=== PATIENT | female | born 1990 | race Caucasian/White ===

== ENCOUNTER 2020-01-28 10:13 | Inpatient (IN) | payer SELFPAY ==
[2020-01-28] MEDS ORDERED: Sodium Chloride 0.9% 1,000 ML IV ONE ×2 (10:38→14:37)
--- NOTE | 2020-01-28 11:00 | EDM.PDOC ---
ED HPI GENERAL MEDICAL PROBLEM - General Chief Complaint: General Stated Complaint: PERSISTEN HEADACHE VOMITING BODYPAINS Time Seen by Provider: 01/28/20 10:15 Source of Information: Reports: Patient History Limitations: Reports: No Limitations - History of Present Illness INITIAL COMMENTS - FREE TEXT/NARRATIVE: HISTORY AND PHYSICAL: History of present illness: Patient is a 29-year-old female who presents to the ED today with concern of headache and generalized body aches over the past 3 to 4 days and urinary frequency/urgency. Patient does state that this is the worst headache of her life and is ultimately what brought her into the ED. Patient states she has tried ibuprofen and Tylenol at home for headache but has not taken any of this today. Patient states she has also had some nausea with a few episodes of vomiting but has not vomited today but feels like she is unable to eat without vomiting. Patient denies any abdominal pain but state she has had left sided flank pain. Patient states that she does have urinary frequency and feels like when she does go to the bathroom often but little volume of urine comes out even though she feels like she has to go. Patient states that at times the headache has made her feel dizzy. Patient denies fever, chills, chest pain, shortness of breath, or cough. Denies neck stiff ness, change in vision, syncope, or near syncope. Denies abdominal pain, diarrhea, constipation, or dysuria. Has not noted any blood in urine or stool. Review of systems: As per history of present illness and below otherwise all systems reviewed and negative. Past medical history: As per history of present illness and as reviewed below otherwise noncontributory. Surgical history: As per history of present illness and as reviewed below otherwise noncontributory. Social history: See social history for further information Family history: As per history of present illness and as reviewed below otherwise noncontributory. Physical exam: General: Patient is alert, oriented, and in no acute distress. Patient sitting comfortably on exam table. HEENT: Atraumatic, normocephalic, pupils equal and reactive bilaterally, negative for conjunctival pallor or scleral icterus, mucous membranes moist, TMs normal bilaterally, throat clear, neck supple, nontender, trachea midline. No drooling or trismus noted. No meningeal signs. No hot potato voice noted. Lungs: Patient speaking clearly without breathlessness, no wheezing or stridor, no accessory muscle use or respiratory distress. Auscultation deferred due to current COV-ID 19 outbreak. Heart: Auscultation deferred due to current COVID-19 outbreak. Abdomen: Soft, nondistended, nontender. Negative for masses or hepatosplenomegaly. Positive for costovertebral tenderness of the left. Pelvis: Stable nontender. Genitourinary: Deferred. Rectal: Deferred. Skin: Intact, warm, dry. No lesions or rashes noted. Extremities: Atraumatic, negative for cords or calf pain. Neurovascular unremarkable. Neuro: Awake, alert, oriented. Cranial nerves II through XII unremarkable. Cerebellum unremarkable. Motor and sensory unremarkable throughout. Exam nonfocal. Notes: Dr. Garcia consulted on patient and will admit to observation. Diagnostics: CBC, CMP, UA w cult, Uhcg, Trop, EKG, COVID19, CXR, Head CT, blood culture x 2, lactate Therapeutics: NS, Rocephin, Toradol, Zofran, Benadryl, Reglan Impression: Pyelonephritis Headache Plan: Admit to observation to Dr. Garcia. Definitive disposition and diagnosis as appropriate pending reevaluation and review of above. headache Pain Score (Numeric/FACES): 9 - Related Data Allergies Allergy/AdvReac Type Severity Reaction Status Date / Time No Known Allergies Allergy Verified 01/28/20 10:39 Past Medical History - Past Surgical History GI Surgical History: Reports: Cholecystectomy Social & Family History - Tobacco Use Smoking Status *Q: Never Smoker - Recreational Drug Use Recreational Drug Use: No ED ROS GENERAL - Review of Systems Review Of Systems: Comprehensive ROS is negative, except as noted in HPI. ED EXAM, GENERAL - Physical Exam Exam: See Below (see dictation) Course - Vital Signs Last Recorded V/S: Last Vital Signs Temp 99.5 F 01/28/20 10:33 Pulse 85 01/28/20 10:33 Resp 18 01/28/20 10:33 BP 130/73 01/28/20 10:33 Pulse Ox 100 01/28/20 10:33 - Orders/Labs/Meds Orders: Active Orders 24 hr Category Date Time Status Admission Status [Patient Status] [ADT] Stat ADT 01/28/20 13:31 Ordered EKG Documentation Completion [RC] STAT Care 01/28/20 10:33 Active CULTURE BLOOD [BC] Stat Lab 01/28/20 12:38 Ordered CULTURE BLOOD [BC] Stat Lab 01/28/20 12:38 Ordered CULTURE URINE [RM] Stat Lab 01/28/20 10:52 Received LACTATE WITH REFLEX [BG] Stat Lab 01/28/20 13:31 Ordered Blood Culture x2 Reflex Set [OM.PC] Stat Oth 01/28/20 12:38 Ordered Labs: Laboratory Tests 01/28/20 01/28/20 01/28/20 Range/Units 10:50 10:50 10:52 WBC 13.85 H (4.0-11.0) K/uL RBC 4.82 (4.30-5.90) M/uL Hgb 14.0 (12.0-16.0) g/dL Hct 39.1 (36.0-46.0) % MCV 81.1 (80.0-98.0) fL MCH 29.0 (27.0-32.0) pg MCHC 35.8 (31.0-37.0) g/dL RDW Std Deviation 39.7 (28.0-62.0) fl RDW Coeff of Karrie 14 (11.0-15.0) % Plt Count 167 (150-400) K/uL MPV 11.60 (7.40-12.00) fL Neut % (Auto) 82.1 H (48.0-80.0) % Lymph % (Auto) 7.6 L (16.0-40.0) % Henry % (Auto) 9.8 (0.0-15.0) % Eos % (Auto) 0.4 (0.0-7.0) % Baso % (Auto) 0.1 (0.0-1.5) % Neut # (Auto) 11.4 H (1.4-5.7) K/uL Lymph # (Auto) 1.1 (0.6-2.4) K/uL Henry # (Auto) 1.4 H (0.0-0.8) K/uL Eos # (Auto) 0.1 (0.0-0.7) K/uL Baso # (Auto) 0.0 (0.0-0.1) K/uL Sodium 133 L (136-145) mmol/L Potassium 3.5 (3.5-5.1) mmol/L Chloride 95 L (98-107) mmol/L Carbon Dioxide 26.2 (21.0-32.0) mmol/L BUN 23 H (7.0-18.0) mg/dL Creatinine 1.2 H (0.6-1.0) mg/dL Est Cr Clr Drug Dosing 69.97 mL/min Estimated GFR (MDRD) 53.5 ml/min Glucose 99 (74-106) mg/dL Calcium 8.7 (8.5-10.1) mg/dL Total Bilirubin 1.2 H (0.2-1.0) mg/dL AST 55 H (15-37) IU/L ALT 91 H (14-63) IU/L Alkaline Phosphatase 105 (46-116) U/L Troponin I < 0.050 (0.000-0.056) ng/mL Total Protein 8.3 H (6.4-8.2) g/dL Albumin 3.3 L (3.4-5.0) g/dL Globulin 5.0 H (2.6-4.0) g/dL Albumin/Globulin Ratio 0.7 L (0.9-1.6) Urine Color DARK YELLOW Urine Appearance SLT CLOUDY Urine pH 6.0 (5.0-8.0) Ur Specific Rodeo 1.015 (1.001-1.035) Urine Protein 100 H (NEGATIVE) mg/dL Urine Glucose (UA) NEGATIVE (NEGATIVE) mg/dL Urine Ketones 15 H (NEGATIVE) mg/dL Urine Occult Blood TRACE-INTACT H (NEGATIVE) Urine Nitrite NEGATIVE (NEGATIVE) Urine Bilirubin NEGATIVE (NEGATIVE) Urine Urobilinogen 1.0 (<2.0) EU/dL Ur Leukocyte Esterase MODERATE H (NEGATIVE) Urine RBC 0-3 (0-2/HPF) Urine WBC 5-10 (0-5/HPF) Ur Epithelial Cells FEW (NONE-FEW) Urine Bacteria 2+ H (NEGATIVE) Urine HCG, Qual (NEGATIVE) COVID-19 (KAREN) (NEGATIVE) 01/28/20 01/28/20 Range/Units 10:52 11:34 WBC (4.0-11.0) K/uL RBC (4.30-5.90) M/uL Hgb (12.0-16.0) g/dL Hct (36.0-46.0) % MCV (80.0-98.0) fL MCH (27.0-32.0) pg MCHC (31.0-37.0) g/dL RDW Std Deviation (28.0-62.0) fl RDW Coeff of Karrie (11.0-15.0) % Plt Count (150-400) K/uL MPV (7.40-12.00) fL Neut % (Auto) (48.0-80.0) % Lymph % (Auto) (16.0-40.0) % Henry % (Auto) (0.0-15.0) % Eos % (Auto) (0.0-7.0) % Baso % (Auto) (0.0-1.5) % Neut # (Auto) (1.4-5.7) K/uL Lymph # (Auto) (0.6-2.4) K/uL Henry # (Auto) (0.0-0.8) K/uL Eos # (Auto) (0.0-0.7) K/uL Baso # (Auto) (0.0-0.1) K/uL Sodium (136-145) mmol/L Potassium (3.5-5.1) mmol/L Chloride (98-107) mmol/L Carbon Dioxide (21.0-32.0) mmol/L BUN (7.0-18.0) mg/dL Creatinine (0.6-1.0) mg/dL Est Cr Clr Drug Dosing mL/min Estimated GFR (MDRD) ml/min Glucose (74-106) mg/dL Calcium (8.5-10.1) mg/dL Total Bilirubin (0.2-1.0) mg/dL AST (15-37) IU/L ALT (14-63) IU/L Alkaline Phosphatase (46-116) U/L Troponin I (0.000-0.056) ng/mL Total Protein (6.4-8.2) g/dL Albumin (3.4-5.0) g/dL Globulin (2.6-4.0) g/dL Albumin/Globulin Ratio (0.9-1.6) Urine Color Urine Appearance Urine pH (5.0-8.0) Ur Specific Rodeo (1.001-1.035) Urine Protein (NEGATIVE) mg/dL Urine Glucose (UA) (NEGATIVE) mg/dL Urine Ketones (NEGATIVE) mg/dL Urine Occult Blood (NEGATIVE) Urine Nitrite (NEGATIVE) Urine Bilirubin (NEGATIVE) Urine Urobilinogen (<2.0) EU/dL Ur Leukocyte Esterase (NEGATIVE) Urine RBC (0-2/HPF) Urine WBC (0-5/HPF) Ur Epithelial Cells (NONE-FEW) Urine Bacteria (NEGATIVE) Urine HCG, Qual NEGATIVE (NEGATIVE) COVID-19 (KAREN) NEGATIVE (NEGATIVE) Meds: Medications Discontinued Medications Generic Name Dose Route Start Last Admin Trade Name Freq PRN Reason Stop Dose Admin Diphenhydramine HCl 25 mg 01/28/20 12:53 01/28/20 13:18 Benadryl IVPUSH 01/28/20 12:54 25 mg ONETIME ONE Administration Sodium Chloride 1,000 mls @ 999 mls/hr 01/28/20 10:38 01/28/20 11:09 Normal Saline IV 01/28/20 11:38 999 mls/hr STAT ONE Administration Ceftriaxone Sodium/Dextrose 1 50 mls @ 100 mls/hr 01/28/20 12:05 01/28/20 13:16 gm/ Premix IV 01/28/20 12:34 100 mls/hr ONETIME ONE Administration Ketorolac Tromethamine 30 mg 01/28/20 12:53 01/28/20 13:17 Toradol IVPUSH 01/28/20 12:54 30 mg ONETIME ONE Administration Metoclopramide HCl 10 mg 01/28/20 12:53 01/28/20 13:18 Reglan IV 01/28/20 12:54 10 mg ONETIME ONE Administration Ondansetron HCl 4 mg 01/28/20 12:08 01/28/20 13:18 Zofran IVPUSH 01/28/20 12:09 4 mg ONETIME ONE Administration Phenazopyridine HCl 200 mg 01/28/20 12:08 01/28/20 13:19 Pyridium PO 01/28/20 12:09 200 mg ONETIME ONE Administration Departure - Departure Time of Disposition: 13:35 Disposition: Refer to Observation Clinical Impression: Pyelonephritis Headache Qualifiers: Headache type: unspecified Headache chronicity pattern: acute headache Intractability: not intractable Qualified Code(s): R51 - Headache - Discharge Information Referrals: PCP,None [Primary Care Provider] - Forms: ED Department Discharge Additional Instructions: Sepsis Event Note (ED) - Evaluation Sepsis Screening Result: No Definite Risk - Focused Exam Vital Signs: Vital Signs Temp Pulse Resp BP Pulse Ox 01/28/20 10:33 99.5 F 85 18 130/73 100 - My Orders Last 24 Hours: My Active Orders 01/28/20 10:33 EKG Documentation Completion [RC] STAT 01/28/20 10:52 CULTURE URINE [RM] Stat 01/28/20 12:38 CULTURE BLOOD [BC] Stat CULTURE BLOOD [BC] Stat Blood Culture x2 Reflex Set [OM.PC] Stat 01/28/20 13:31 Admission Status [Patient Status] [ADT] Stat LACTATE WITH REFLEX [BG] Stat - Assessment/Plan Last 24 Hours: My Active Orders 01/28/20 10:33 EKG Documentation Completion [RC] STAT 01/28/20 10:52 CULTURE URINE [RM] Stat 01/28/20 12:38 CULTURE BLOOD [BC] Stat CULTURE BLOOD [BC] Stat Blood Culture x2 Reflex Set [OM.PC] Stat 01/28/20 13:31 Admission Status [Patient Status] [ADT] Stat LACTATE WITH REFLEX [BG] Stat
[2020-01-28 11:31] LABS: BLOOD UREA NITROGEN,BUN 23 mg/dL (7.0-18.0); CARBON DIOXIDE,CO2 26.2 mmol/L (21.0-32.0); CHLORIDE,CL 95 mmol/L (98-107); GLUCOSE RANDOM 99 mg/dL (74-106); POTASSIUM,K 3.5 mmol/L (3.5-5.1); SODIUM,NA 133 mmol/L (136-145)
[2020-01-28] MEDS ORDERED: cefTRIAXone 1 GM in Premix Bag 1 BAG IV ONE (12:05)
[2020-01-28] MEDS ORDERED: Phenazopyridine 200 MG Tab PO ONE (12:08)
[2020-01-28] MEDS ORDERED: Ondansetron 4 MG/2 ML SDV IVPUSH ONE (12:08)
--- NOTE | 2020-01-28 12:31 | CT ---
Head CT Technique: Multiple axial sections through the brain were obtained. Intravenous contrast was not utilized. Comparison: No previous intracranial imaging. Findings: Ventricles along with basal cisterns and sulci over the convexities are within normal limits for the patient's age. No abnormal parenchymal densities are seen. No evidence of intracranial hemorrhage. No midline shift or mass effect is seen. Visualized mastoid sinuses and paranasal sinuses show nothing acute. No acute calvarial finding is appreciated. Impression: 1. Nothing acute is identified on noncontrast head CT exam. Diagnostic code #1 This report was dictated in MDT
--- NOTE | 2020-01-28 12:39 | CR ---
Chest: Frontal view of the chest was obtained. Comparison: No prior chest imaging. Heart size and mediastinum are normal. Nodule is noted within the left upper chest measuring about 1.2 cm. This appears fairly dense and most likely is calcified although noncontrast chest CT could be considered to confirm. Lungs otherwise are clear. Bony structures are unremarkable. Impression: 1. Nodule within the left upper chest as described above. 2. Nothing acute is otherwise seen. Diagnostic code #9 This report was dictated in MDT
[2020-01-28] MEDS ORDERED: diphenhydrAMINE 50 MG/ML SDV IVPUSH ONE (12:53)
[2020-01-28] MEDS ORDERED: Metoclopramide 10 MG/2 ML SDV IV ONE (12:53)
[2020-01-28] MEDS ORDERED: Ketorolac 30 MG/ML SDV IVPUSH ONE (12:53)
[2020-01-28] MEDS ORDERED: Sodium Chloride 0.9% 2.5 ML Syringe FLUSH PRN (14:12)
[2020-01-28] MEDS ORDERED: Ondansetron 4 MG/2 ML SDV IVPUSH PRN (14:12)
[2020-01-28] MEDS ORDERED: Docusate Sodium 100 MG Cap PO PRN (14:12)
[2020-01-28] MEDS: Morphine 2 MG/ML SYRINGE IVPUSH PRN ×2 (14:50→17:49)
--- NOTE | 2020-01-28 14:51 | PCM.HP.2 ---
H&P History of Present Illness - General Date of Service: 01/28/20 Admit Problem/Dx: Admission Diagnosis/Problem Admission Diagnosis/Problem Pyelonephritis Source of Information: Patient History Limitations: Reports: No Limitations - History of Present Illness Initial Comments - Free Text/Narative: This 29 year old female with pmh of UTIs, none for 5 years, presented to the ED with complaints of flank pain, dysuria, nausea and generalized malaise. She reports on Saturday she started to notice the urinary symptoms and was very fatigued, she slept from 8 am to 8 pm. She reports the flank pain to her L worsened progressively and Tylenol and Ibuprofen has not really helped at home. She denies fevers or chills. She denies history of renal stones. No recent antibiotic use. She also reports a headache, that is all over her head, with light and sound sensitivity. She generally feels ill and is very thirsty, but nauseated. She denies diarrhea or constipation. No chest pain or palpitations. No shortness of breath. No focal neurological deficits. She does not use tobacco, alcohol or recreational drug use. In the ED labwork revelaed leukocytosis, 13,850 lactic acid 0.8. Na 133, Cl 95, BUN 23, Cr 1.2 Bili 1.2 AST 55 ALT 91, troponin negative. head CT negative. CXR negative, reveals calcified granuloma. COVID negative. UA revealed positive nitrite, trace blood, moderate leukcyte esterase, pyruis, +2 bacteria, HCG negative. She was treated with Rocephin, IVFs and migraine cocktail of Toradol, Benadryl, and Reglan. She did not feel comfortable going some as she is unsure she is able to take oral medications. She will be admitted observation for pyelonephritis. headache Pain Score (Numeric/FACES): 9 - Related Data Allergies/Adverse Reactions: Allergies Allergy/AdvReac Type Severity Reaction Status Date / Time No Known Allergies Allergy Verified 01/28/20 14:23 Past Medical History Cardiovascular History: Reports: None. Denies: CAD, Hypertension Respiratory History: Reports: None. Denies: Asthma Gastrointestinal History: Reports: None. Denies: GI Bleed Genitourinary History: Reports: UTI, Recurrent (hasn't had in 5 years, but used to get then frequently). Denies: Acute Renal Failure Musculoskeletal History: Reports: None Neurological History: Reports: None. Denies: Migraines Psychiatric History: Reports: None Oncologic (Cancer) History: Reports: None - Infectious Disease History Infectious Disease History: Reports: None - Past Surgical History GI Surgical History: Reports: Cholecystectomy Social & Family History - Family History Cardiac: Reports: CAD, Hypertension, [place] - Tobacco Use Smoking Status *Q: Never Smoker - Alcohol Use Alcohol Use History: No - Recreational Drug Use Recreational Drug Use: No H&P Review of Systems - Review of Systems: Review Of Systems: See Below General: Reports: Malaise, Fatigue. Denies: Fever HEENT: Reports: No Symptoms. Denies: Headaches, Sinus Congestion, Sore Throat Pulmonary: Reports: No Symptoms. Denies: Shortness of Breath Cardiovascular: Reports: No Symptoms. Denies: Chest Pain Gastrointestinal: Reports: Abdominal Pain, Decreased Appetite, Nausea. Denies: Black Stool, Bloody Stool Genitourinary: Reports: Dysuria, Frequency, Urgency, Flank Pain Musculoskeletal: Reports: No Symptoms Skin: Reports: No Symptoms Psychiatric: Reports: No Symptoms Neurological: Reports: No Symptoms Hematologic/Lymphatic: Reports: No Symptoms Immunologic: Reports: No Symptoms Exam - Exam Exam: See Below - Vital Signs Vital Signs: Last Vital Signs Temp 99.5 F 01/28/20 10:33 Pulse 102 H 01/28/20 12:42 Resp 18 01/28/20 11:42 BP 107/70 01/28/20 12:42 Pulse Ox 99 01/28/20 12:42 Weight: 63.503 kg - Exam General: Alert, Oriented, Mild Distress (having flank pain, restless sitting on edge of bed) HEENT: Conjunctiva Clear, Posterior Pharynx Clear. No: Mucosa Moist & [place] (dry) Lungs: Clear to Auscultation, Normal Respiratory Effort Cardiovascular: Regular Rate, Regular Rhythm, Normal S1, Normal S2. No: Tachyca rdia, Systolic Murmur GI/Abdominal Exam: Normal Bowel Sounds, Soft, Non-Tender Back Exam: Full Range of Motion, CVA Tenderness (L). No: CVA Tenderness (R) Extremities: Normal Inspection, Normal Range of Motion, Non-Tender, No Pedal Edema Neuro Extensive - Mental Status: Alert, Oriented x3 Neuro Extensive - Motor, Sensory, Reflexes: CN II-XII Intact Psychiatric: Alert, Normal Affect, Normal Mood - Patient Data Lab Results Last 24 hrs: Laboratory Results - last 24 hr 01/28/20 01/28/20 01/28/20 Range/Units 10:50 10:50 10:52 WBC 13.85 H (4.0-11.0) K/uL RBC 4.82 (4.30-5.90) M/uL Hgb 14.0 (12.0-16.0) g/dL Hct 39.1 (36.0-46.0) % MCV 81.1 (80.0-98.0) fL MCH 29.0 (27.0-32.0) pg MCHC 35.8 (31.0-37.0) g/dL RDW Std Deviation 39.7 (28.0-62.0) fl RDW Coeff of Karrie 14 (11.0-15.0) % Plt Count 167 (150-400) K/uL MPV 11.60 (7.40-12.00) fL Neut % (Auto) 82.1 H (48.0-80.0) % Lymph % (Auto) 7.6 L (16.0-40.0) % [place] % (Auto) 9.8 (0.0-15.0) % Eos % (Auto) 0.4 (0.0-7.0) % Baso % (Auto) 0.1 (0.0-1.5) % Neut # (Auto) 11.4 H (1.4-5.7) K/uL Lymph # (Auto) 1.1 (0.6-2.4) K/uL [place] # (Auto) 1.4 H (0.0-0.8) K/uL Eos # (Auto) 0.1 (0.0-0.7) K/uL Baso # (Auto) 0.0 (0.0-0.1) K/uL Lactate (0.20-2.00) mmol/L Sodium 133 L (136-145) mmol/L Potassium 3.5 (3.5-5.1) mmol/L Chloride 95 L (98-107) mmol/L Carbon Dioxide 26.2 (21.0-32.0) mmol/L BUN 23 H (7.0-18.0) mg/dL Creatinine 1.2 H (0.6-1.0) mg/dL Est Cr Clr Drug Dosing 69.97 mL/min Estimated GFR (MDRD) 53.5 ml/min Glucose 99 (74-106) mg/dL Calcium 8.7 (8.5-10.1) mg/dL Total Bilirubin 1.2 H (0.2-1.0) mg/dL AST 55 H (15-37) IU/L ALT 91 H (14-63) IU/L Alkaline Phosphatase 105 (46-116) U/L Troponin I < 0.050 (0.000-0.056) ng/mL Total Protein 8.3 H (6.4-8.2) g/dL Albumin 3.3 L (3.4-5.0) g/dL Globulin 5.0 H (2.6-4.0) g/dL Albumin/Globulin Ratio 0.7 L (0.9-1.6) Urine Color DARK YELLOW Urine Appearance SLT CLOUDY Urine pH 6.0 (5.0-8.0) Ur Specific [place] 1.015 (1.001-1.035) Urine Protein 100 H (NEGATIVE) mg/dL Urine Glucose (UA) NEGATIVE (NEGATIVE) mg/dL Urine Ketones 15 H (NEGATIVE) mg/dL Urine Occult Blood TRACE-INTACT H (NEGATIVE) Urine Nitrite NEGATIVE (NEGATIVE) Urine Bilirubin NEGATIVE (NEGATIVE) Urine Urobilinogen 1.0 (<2.0) EU/dL Ur Leukocyte Esterase MODERATE H (NEGATIVE) Urine RBC 0-3 (0-2/HPF) Urine WBC 5-10 (0-5/HPF) Ur Epithelial Cells FEW (NONE-FEW) Urine Bacteria 2+ H (NEGATIVE) Urine HCG, Qual (NEGATIVE) COVID-19 (KAREN) (NEGATIVE) 01/28/20 01/28/20 01/28/20 Range/Units 10:52 11:34 13:45 WBC (4.0-11.0) K/uL RBC (4.30-5.90) M/uL Hgb (12.0-16.0) g/dL Hct (36.0-46.0) % MCV (80.0-98.0) fL MCH (27.0-32.0) pg MCHC (31.0-37.0) g/dL RDW Std Deviation (28.0-62.0) fl RDW Coeff of [place] (11.0-15.0) % Plt Count (150-400) K/uL MPV (7.40-12.00) fL Neut % (Auto) (48.0-80.0) % Lymph % (Auto) (16.0-40.0) % [place] % (Auto) (0.0-15.0) % Eos % (Auto) (0.0-7.0) % Baso % (Auto) (0.0-1.5) % Neut # (Auto) (1.4-5.7) K/uL Lymph # (Auto) (0.6-2.4) K/uL [place] # (Auto) (0.0-0.8) K/uL Eos # (Auto) (0.0-0.7) K/uL Baso # (Auto) (0.0-0.1) K/uL Lactate 0.8 (0.20-2.00) mmol/L Sodium (136-145) mmol/L Potassium (3.5-5.1) mmol/L Chloride (98-107) mmol/L Carbon Dioxide (21.0-32.0) mmol/L BUN (7.0-18.0) mg/dL Creatinine (0.6-1.0) mg/dL Est Cr Clr Drug Dosing mL/min Estimated GFR (MDRD) ml/min Glucose (74-106) mg/dL Calcium (8.5-10.1) mg/dL Total Bilirubin (0.2-1.0) mg/dL AST (15-37) IU/L ALT (14-63) IU/L Alkaline Phosphatase (46-116) U/L Troponin I (0.000-0.056) ng/mL Total Protein (6.4-8.2) g/dL Albumin (3.4-5.0) g/dL Globulin (2.6-4.0) g/dL Albumin/Globulin Ratio (0.9-1.6) Urine Color Urine Appearance Urine pH (5.0-8.0) Ur Specific [place] (1.001-1.035) Urine Protein (NEGATIVE) mg/dL Urine Glucose (UA) (NEGATIVE) mg/dL Urine Ketones (NEGATIVE) mg/dL Urine Occult Blood (NEGATIVE) Urine Nitrite (NEGATIVE) Urine Bilirubin (NEGATIVE) Urine Urobilinogen (<2.0) EU/dL Ur Leukocyte Esterase (NEGATIVE) Urine RBC (0-2/HPF) Urine WBC (0-5/HPF) Ur Epithelial Cells (NONE-FEW) Urine Bacteria (NEGATIVE) Urine HCG, Qual NEGATIVE (NEGATIVE) COVID-19 (KAREN) NEGATIVE (NEGATIVE) Result Diagrams: 01/28/20 10:50 01/28/20 10:50 Sepsis Event Note - Evaluation Sepsis Screening Result: No Definite Risk - Focused Exam Vital Signs: Vital Signs Temp Pulse Resp BP Pulse Ox 01/28/20 12:42 102 H 107/70 99 01/28/20 11:42 100 18 114/70 100 01/28/20 11:13 93 18 128/82 96 01/28/20 10:33 99.5 F 85 18 130/73 100 - Problem List (1) Pyelonephritis SNOMED Code(s): 15169793 ICD Code: N12 - TUBULO-INTERSTITIAL NEPHRITIS, NOT SPCF ACUTE OR CHRONIC Status: Acute Current Visit: Yes (2) Headache SNOMED Code(s): 61517017 ICD Code: R51 - HEADACHE Status: Acute Current Visit: Yes Qualifiers: Headache type: unspecified Headache chronicity pattern: acute headache Intractability: not intractable Qualified Code(s): R51 - Headache Problem List Initiated/Reviewed/Updated: Yes Orders Last 24hrs: Active Orders 24 hr Category Date Time Status Admission Status [Patient Status] [ADT] Stat ADT 01/28/20 13:31 Active Antiembolic Devices [RC] PER UNIT ROUTINE Care 01/28/20 14:11 Active EKG Documentation Completion [RC] STAT Care 01/28/20 10:33 Active Intake and Output [RC] QSHIFT Care 01/28/20 14:11 Active May Shower [RC] ASDIRECTED Care 01/28/20 14:11 Active Oxygen Therapy [RC] PRN Care 01/28/20 14:11 Active Up With Assistance [RC] ASDIRECTED Care 01/28/20 14:11 Active VTE/DVT Education [RC] PER UNIT ROUTINE Care 01/28/20 14:11 Active Vital Signs [RC] Q4H Care 01/28/20 14:11 Active Clear Liquid Diet [DIET] Diet 01/28/20 Lunch Active Retroperitoneal Comp [US] Urgent Exams 01/28/20 14:03 Ordered CBC WITH AUTO DIFF [HEME] AM Lab 01/29/20 05:11 Ordered CBC WITH AUTO DIFF [HEME] AM Lab 01/30/20 05:11 Ordered COMPREHENSIVE METABOLIC PN,CMP [CHEM] AM Lab 01/29/20 05:11 Ordered COMPREHENSIVE METABOLIC PN,CMP [CHEM] AM Lab 01/30/20 05:11 Ordered CULTURE BLOOD [BC] Stat Lab 01/28/20 12:52 Received CULTURE BLOOD [BC] Stat Lab 01/28/20 13:12 Received CULTURE URINE [RM] Stat Lab 01/28/20 10:52 Received Acetaminophen [Tylenol] Med 01/28/20 14:11 Active 650 mg PO Q4H PRN Docusate Sodium [Colace] Med 01/28/20 14:12 Active 100 mg PO BID PRN Morphine Med 01/28/20 14:11 Active 2 mg IVPUSH Q2H PRN Ondansetron [Zofran] Med 01/28/20 14:12 Active 4 mg IVPUSH Q4H PRN SUMAtriptan [Imitrex] Med 01/28/20 14:37 Ordered 50 mg PO Q2H PRN Sodium Chloride 0.9% [Normal Saline] 1,000 ml Med 01/28/20 14:37 Ordered IV .Bolus Sodium Chloride 0.9% [Normal Saline] 1,000 ml Med 01/28/20 14:15 Active IV Q8H Sodium Chloride 0.9% [Saline Flush] Med 01/28/20 14:12 Active 2.5 ml FLUSH ASDIRECTED PRN cefTRIAXone [Rocephin in Dextrose,Iso-Osm 1 GM/50 ML] 1 Med 01/29/20 12:00 Active gm Premix Bag 1 bag IV Q24H oxyCODONE Med 01/28/20 14:11 Active 5 mg PO Q4H PRN Blood Culture x2 Reflex Set [OM.PC] Stat Oth 01/28/20 12:38 Ordered Saline Lock Insert [OM.PC] Routine Oth 01/28/20 14:12 Ordered Sequential Compression Device [OM.PC] Per Unit Routine Oth 01/28/20 14:11 Ordered Resuscitation Status Routine Resus Stat 01/28/20 14:11 Ordered Medication Orders Acetaminophen (Tylenol) 650 mg PO Q4H PRN PRN Reason: Pain (Mild 1-3)/fever Docusate Sodium (Colace) 100 mg PO BID PRN PRN Reason: Constipation Sodium Chloride (Normal Saline) 1,000 mls @ 125 mls/hr IV Q8H [place] Ceftriaxone Sodium/Dextrose 1 (gm/ Premix) 50 mls @ 100 mls/hr IV Q24H [place] Sodium Chloride (Normal Saline) 1,000 mls @ 999 mls/hr IV .Bolus ONE Stop: 01/28/20 15:37 Morphine Sulfate (Morphine) 2 mg IVPUSH Q2H PRN PRN Reason: Pain (severe 7-10) Ondansetron HCl (Zofran) 4 mg IVPUSH Q4H PRN PRN Reason: Nausea Oxycodone HCl (Oxycodone) 5 mg PO Q4H PRN PRN Reason: Pain (moderate 4-6) Sodium Chloride (Saline Flush) 2.5 ml FLUSH ASDIRECTED PRN PRN Reason: Keep Vein Open Sumatriptan Succinate (Imitrex) 50 mg PO Q2H PRN PRN Reason: Headache Assessment/Plan Comment:: This 29 year old female admitted with acute pyelonephritis 1. Acute pyelonephritis - UC and BC pending - Continue Rocephin 1 gm IV daily - Give 1 L NS bolus now, then continue NS 125 ml/hr - Morphine PRN pain as well as Oxycodone - CL diet due to nausea, advance as tolerated. - Obtain renal US to rule out obstruction 2. Migraine: - No history of migraines - Migraine cocktail in ED did not work - Imitrex po x 2 doses ordered, will monitor VTE prophylaxis: SCDs and ambulation Dispo: 1-2 days - Mortality Measure Prognosis:: Good
[2020-01-28] MEDS: Sodium Chloride 0.9% 1,000 ML IV SCH ×2 (16:11→22:37)
[2020-01-28] MEDS: SUMAtriptan 50 MG Tab PO PRN ×2 (16:13→19:26)
--- NOTE | 2020-01-28 16:23 | US ---
Renal ultrasound: Multiple real-time images of the kidneys were obtained. Kidneys show no hydronephrosis or mass. Cortical thickness is preserved. No ureteral jets were seen within the bladder despite five-minute interval. This raises the possibility of dehydration. Small 4 mL post void bladder volume is noted. Right kidney length: 12.4 cm Left kidney length: 13.2 cm Impression: 1. No ureteral jets were seen despite five-minute interval. This raises possibility of dehydration. 2. Small post void residual as noted above. 3. Renal ultrasound is otherwise unremarkable. Diagnostic code #2 Study was dictated in MDT
[2020-01-28] MEDS: oxyCODONE 5 MG Tab PO PRN (22:36)
[2020-01-28] MEDS: Acetaminophen 325 MG Tab PO PRN (23:10)
[2020-01-29] MEDS: oxyCODONE 5 MG Tab PO PRN ×4 (04:59→22:11)
[2020-01-29 06:20] LABS: BLOOD UREA NITROGEN,BUN 7 mg/dL (7.0-18.0); CARBON DIOXIDE,CO2 21.4 mmol/L (21.0-32.0); CHLORIDE,CL 101 mmol/L (98-107); GLUCOSE RANDOM 120 mg/dL (74-106); POTASSIUM,K 3.1 mmol/L (3.5-5.1); SODIUM,NA 133 mmol/L (136-145)
[2020-01-29] MEDS ORDERED: Ibuprofen 400 MG Tab PO PRN (08:30)
--- NOTE | 2020-01-29 08:40 | PCM.PN ---
- General Info Date of Service: 01/29/20 Admission Dx/Problem (Free Text): Admission Diagnosis/Problem Admission Diagnosis/Problem Pyelonephritis Subjective Update: Feeling general malaise this morning, having headache and continued L flank pain. No chest pain or SOB. No palpitations. Fevers overnight. Functional Status: Reports: Pain Controlled, Tolerating Diet, Ambulating, Urinating - Review of Systems General: Reports: Fatigue, Malaise HEENT: Reports: Headaches. Denies: Sore Throat, Visual Changes Pulmonary: Reports: No Symptoms. Denies: Shortness of Breath Cardiovascular: Reports: No Symptoms. Denies: Chest Pain Gastrointestinal: Reports: Nausea. Denies: Diarrhea Genitourinary: Reports: Dysuria, Flank Pain Musculoskeletal: Reports: No Symptoms Skin: Reports: No Symptoms Neurological: Reports: No Symptoms Psychiatric: Reports: No Symptoms - Patient Data Vitals - Most Recent: Last Vital Signs Temp 100.5 F 01/29/20 04:45 Pulse 98 01/29/20 04:45 Resp 16 01/29/20 04:45 BP 104/59 L 01/29/20 04:45 Pulse Ox 99 01/29/20 04:45 Weight - Most Recent: 63.503 kg I&O - Last 24 Hours: Intake & Output 01/28/20 01/29/20 01/29/20 22:59 06:59 14:59 Intake Total 240 3685 Output Total 400 2450 Balance -160 1235 Lab Results Last 24 Hours: Laboratory Results - last 24 hr 01/28/20 01/28/20 01/28/20 Range/Units 10:50 10:50 10:52 WBC 13.85 H (4.0-11.0) K/uL RBC 4.82 (4.30-5.90) M/uL Hgb 14.0 (12.0-16.0) g/dL Hct 39.1 (36.0-46.0) % MCV 81.1 (80.0-98.0) fL MCH 29.0 (27.0-32.0) pg MCHC 35.8 (31.0-37.0) g/dL RDW Std Deviation 39.7 (28.0-62.0) fl RDW Coeff of Karrie 14 (11.0-15.0) % Plt Count 167 (150-400) K/uL MPV 11.60 (7.40-12.00) fL Neut % (Auto) 82.1 H (48.0-80.0) % Lymph % (Auto) 7.6 L (16.0-40.0) % [place] % (Auto) 9.8 (0.0-15.0) % Eos % (Auto) 0.4 (0.0-7.0) % Baso % (Auto) 0.1 (0.0-1.5) % Neut # (Auto) 11.4 H (1.4-5.7) K/uL Lymph # (Auto) 1.1 (0.6-2.4) K/uL [place] # (Auto) 1.4 H (0.0-0.8) K/uL Eos # (Auto) 0.1 (0.0-0.7) K/uL Baso # (Auto) 0.0 (0.0-0.1) K/uL Nucleated RBC % /100WBC Nucleated RBCs # K/uL Lactate (0.20-2.00) mmol/L Sodium 133 L (136-145) mmol/L Potassium 3.5 (3.5-5.1) mmol/L Chloride 95 L (98-107) mmol/L Carbon Dioxide 26.2 (21.0-32.0) mmol/L BUN 23 H (7.0-18.0) mg/dL Creatinine 1.2 H (0.6-1.0) mg/dL Est Cr Clr Drug Dosing 69.97 mL/min Estimated GFR (MDRD) 53.5 ml/min Glucose 99 (74-106) mg/dL Calcium 8.7 (8.5-10.1) mg/dL Total Bilirubin 1.2 H (0.2-1.0) mg/dL AST 55 H (15-37) IU/L ALT 91 H (14-63) IU/L Alkaline Phosphatase 105 (46-116) U/L Troponin I < 0.050 (0.000-0.056) ng/mL Total Protein 8.3 H (6.4-8.2) g/dL Albumin 3.3 L (3.4-5.0) g/dL Globulin 5.0 H (2.6-4.0) g/dL Albumin/Globulin Ratio 0.7 L (0.9-1.6) Urine Color DARK YELLOW Urine Appearance SLT CLOUDY Urine pH 6.0 (5.0-8.0) Ur Specific [place] 1.015 (1.001-1.035) Urine Protein 100 H (NEGATIVE) mg/dL Urine Glucose (UA) NEGATIVE (NEGATIVE) mg/dL Urine Ketones 15 H (NEGATIVE) mg/dL Urine Occult Blood TRACE-INTACT H (NEGATIVE) Urine Nitrite NEGATIVE (NEGATIVE) Urine Bilirubin NEGATIVE (NEGATIVE) Urine Urobilinogen 1.0 (<2.0) EU/dL Ur Leukocyte Esterase MODERATE H (NEGATIVE) Urine RBC 0-3 (0-2/HPF) Urine WBC 5-10 (0-5/HPF) Ur Epithelial Cells FEW (NONE-FEW) Urine Bacteria 2+ H (NEGATIVE) Urine HCG, Qual (NEGATIVE) COVID-19 (KAREN) (NEGATIVE) 01/28/20 01/28/20 01/28/20 Range/Units 10:52 11:34 13:45 WBC (4.0-11.0) K/uL RBC (4.30-5.90) M/uL Hgb (12.0-16.0) g/dL Hct (36.0-46.0) % MCV (80.0-98.0) fL MCH (27.0-32.0) pg MCHC (31.0-37.0) g/dL RDW Std Deviation (28.0-62.0) fl RDW Coeff of [place] (11.0-15.0) % Plt Count (150-400) K/uL MPV (7.40-12.00) fL Neut % (Auto) (48.0-80.0) % Lymph % (Auto) (16.0-40.0) % [place] % (Auto) (0.0-15.0) % Eos % (Auto) (0.0-7.0) % Baso % (Auto) (0.0-1.5) % Neut # (Auto) (1.4-5.7) K/uL Lymph # (Auto) (0.6-2.4) K/uL [place] # (Auto) (0.0-0.8) K/uL Eos # (Auto) (0.0-0.7) K/uL Baso # (Auto) (0.0-0.1) K/uL Nucleated RBC % /100WBC Nucleated RBCs # K/uL Lactate 0.8 (0.20-2.00) mmol/L Sodium (136-145) mmol/L Potassium (3.5-5.1) mmol/L Chloride (98-107) mmol/L Carbon Dioxide (21.0-32.0) mmol/L BUN (7.0-18.0) mg/dL Creatinine (0.6-1.0) mg/dL Est Cr Clr Drug Dosing mL/min Estimated GFR (MDRD) ml/min Glucose (74-106) mg/dL Calcium (8.5-10.1) mg/dL Total Bilirubin (0.2-1.0) mg/dL AST (15-37) IU/L ALT (14-63) IU/L Alkaline Phosphatase (46-116) U/L Troponin I (0.000-0.056) ng/mL Total Protein (6.4-8.2) g/dL Albumin (3.4-5.0) g/dL Globulin (2.6-4.0) g/dL Albumin/Globulin Ratio (0.9-1.6) Urine Color Urine Appearance Urine pH (5.0-8.0) Ur Specific [place] (1.001-1.035) Urine Protein (NEGATIVE) mg/dL Urine Glucose (UA) (NEGATIVE) mg/dL Urine Ketones (NEGATIVE) mg/dL Urine Occult Blood (NEGATIVE) Urine Nitrite (NEGATIVE) Urine Bilirubin (NEGATIVE) Urine Urobilinogen (<2.0) EU/dL Ur Leukocyte Esterase (NEGATIVE) Urine RBC (0-2/HPF) Urine WBC (0-5/HPF) Ur Epithelial Cells (NONE-FEW) Urine Bacteria (NEGATIVE) Urine HCG, Qual NEGATIVE (NEGATIVE) COVID-19 (KAREN) NEGATIVE (NEGATIVE) 01/29/20 01/29/20 Range/Units 05:33 05:33 WBC 9.53 (4.0-11.0) K/uL RBC 3.78 L (4.30-5.90) M/uL Hgb 10.8 L (12.0-16.0) g/dL Hct 31.3 L (36.0-46.0) % MCV 82.8 (80.0-98.0) fL MCH 28.6 (27.0-32.0) pg MCHC 34.5 (31.0-37.0) g/dL RDW Std Deviation 42.0 (28.0-62.0) fl RDW Coeff of Karrie 14 (11.0-15.0) % Plt Count 175 (150-400) K/uL MPV 10.80 (7.40-12.00) fL Neut % (Auto) 71.4 (48.0-80.0) % Lymph % (Auto) 14.1 L (16.0-40.0) % [place] % (Auto) 14.3 (0.0-15.0) % Eos % (Auto) 0.1 (0.0-7.0) % Baso % (Auto) 0.1 (0.0-1.5) % Neut # (Auto) 6.8 H (1.4-5.7) K/uL Lymph # (Auto) 1.3 (0.6-2.4) K/uL [place] # (Auto) 1.4 H (0.0-0.8) K/uL Eos # (Auto) 0.0 (0.0-0.7) K/uL Baso # (Auto) 0.0 (0.0-0.1) K/uL Nucleated RBC % 0.0 /100WBC Nucleated RBCs # 0 K/uL Lactate (0.20-2.00) mmol/L Sodium 133 L (136-145) mmol/L Potassium 3.1 L (3.5-5.1) mmol/L Chloride 101 (98-107) mmol/L Carbon Dioxide 21.4 (21.0-32.0) mmol/L BUN 7 (7.0-18.0) mg/dL Creatinine 0.9 (0.6-1.0) mg/dL Est Cr Clr Drug Dosing 93.29 mL/min Estimated GFR (MDRD) > 60.0 ml/min Glucose 120 H (74-106) mg/dL Calcium 7.1 L (8.5-10.1) mg/dL Total Bilirubin 0.9 (0.2-1.0) mg/dL AST 51 H (15-37) IU/L ALT 78 H (14-63) IU/L Alkaline Phosphatase 100 (46-116) U/L Troponin I (0.000-0.056) ng/mL Total Protein 6.2 L (6.4-8.2) g/dL Albumin 2.4 L (3.4-5.0) g/dL Globulin 3.8 (2.6-4.0) g/dL Albumin/Globulin Ratio 0.6 L (0.9-1.6) Urine Color Urine Appearance Urine pH (5.0-8.0) Ur Specific [place] (1.001-1.035) Urine Protein (NEGATIVE) mg/dL Urine Glucose (UA) (NEGATIVE) mg/dL Urine Ketones (NEGATIVE) mg/dL Urine Occult Blood (NEGATIVE) Urine Nitrite (NEGATIVE) Urine Bilirubin (NEGATIVE) Urine Urobilinogen (<2.0) EU/dL Ur Leukocyte Esterase (NEGATIVE) Urine RBC (0-2/HPF) Urine WBC (0-5/HPF) Ur Epithelial Cells (NONE-FEW) Urine Bacteria (NEGATIVE) Urine HCG, Qual (NEGATIVE) COVID-19 (KAREN) (NEGATIVE) Med Orders - Current: Current Medications Acetaminophen (Tylenol) 650 mg PO Q4H PRN PRN Reason: Pain (Mild 1-3)/fever Last Admin: 01/28/20 23:10 Dose: 650 mg Documented by: Docusate Sodium (Colace) 100 mg PO BID PRN PRN Reason: Constipation Sodium Chloride (Normal Saline) 1,000 mls @ 125 mls/hr IV Q8H [facility] Last Admin: 01/28/20 22:37 Dose: 125 mls/hr Documented by: Ceftriaxone Sodium/Dextrose 1 (gm/ Premix) 50 mls @ 100 mls/hr IV Q24H [facility] Ibuprofen (Motrin) 400 mg PO Q6H PRN PRN Reason: Pain/Fever Morphine Sulfate (Morphine) 2 mg IVPUSH Q2H PRN PRN Reason: Pain (severe 7-10) Last Admin: 01/28/20 17:49 Dose: 2 mg Documented by: Ondansetron HCl (Zofran) 4 mg IVPUSH Q4H PRN PRN Reason: Nausea Oxycodone HCl (Oxycodone) 5 mg PO Q4H PRN PRN Reason: Pain (moderate 4-6) Last Admin: 01/29/20 04:59 Dose: 5 mg Documented by: Sodium Chloride (Saline Flush) 2.5 ml FLUSH ASDIRECTED PRN PRN Reason: Keep Vein Open Discontinued Medications Diphenhydramine HCl (Benadryl) 25 mg IVPUSH ONETIME ONE Stop: 01/28/20 12:54 Last Admin: 01/28/20 13:18 Dose: 25 mg Documented by: Sodium Chloride (Normal Saline) 1,000 mls @ 999 mls/hr IV STAT ONE Stop: 01/28/20 11:38 Last Admin: 01/28/20 11:09 Dose: 999 mls/hr Documented by: Ceftriaxone Sodium/Dextrose 1 (gm/ Premix) 50 mls @ 100 mls/hr IV ONETIME ONE Stop: 01/28/20 12:34 Last Admin: 01/28/20 13:16 Dose: 100 mls/hr Documented by: Sodium Chloride (Normal Saline) 1,000 mls @ 999 mls/hr IV .Bolus ONE Stop: 01/28/20 15:37 Last Admin: 01/28/20 14:44 Dose: 999 mls/hr Documented by: Ketorolac Tromethamine (Toradol) 30 mg IVPUSH ONETIME ONE Stop: 01/28/20 12:54 Last Admin: 01/28/20 13:17 Dose: 30 mg Documented by: Metoclopramide HCl (Reglan) 10 mg IV ONETIME ONE Stop: 01/28/20 12:54 Last Admin: 01/28/20 13:18 Dose: 10 mg Documented by: Ondansetron HCl (Zofran) 4 mg IVPUSH ONETIME ONE Stop: 01/28/20 12:09 Last Admin: 01/28/20 13:18 Dose: 4 mg Documented by: Phenazopyridine HCl (Pyridium) 200 mg PO ONETIME ONE Stop: 01/28/20 12:09 Last Admin: 01/28/20 13:19 Dose: 200 mg Documented by: Sumatriptan Succinate (Imitrex) 50 mg PO Q2H PRN PRN Reason: Headache Last Admin: 01/28/20 19:26 Dose: 50 mg Documented by: - Exam General: Alert, Oriented, Cooperative, No Acute Distress Lungs: Clear to Auscultation, Normal Respiratory Effort Cardiovascular: Regular Rate, Regular Rhythm GI/Abdominal Exam: Normal Bowel Sounds, Soft Back Exam: Normal Inspection, Full Range of Motion, CVA Tenderness (L). No: CVA Tenderness (R) Extremities: Normal Inspection, Normal Range of Motion, Non-Tender, No Pedal Edema Neurological: No New Focal Deficit Psy/Mental Status: Alert, Normal Affect, Normal Mood Sepsis Event Note - Evaluation Sepsis Screening Result: Sepsis Risk - Focused Exam Vital Signs: Vital Signs Temp Temp Pulse Resp BP Pulse Ox 01/29/20 04:45 100.5 F 98 16 104/59 L 99 01/28/20 23:10 101.2 F H 01/28/20 23:04 101.2 F H 104 H 16 103/53 L 98 - Problem List & Annotations (1) Pyelonephritis SNOMED Code(s): 64779838 Code(s): N12 - TUBULO-INTERSTITIAL NEPHRITIS, NOT SPCF ACUTE OR CHRONIC Status: Acute Current Visit: Yes (2) Headache SNOMED Code(s): 83949678 Code(s): R51 - HEADACHE Status: Acute Current Visit: Yes Qualifiers: Headache type: unspecified Headache chronicity pattern: acute headache Intractability: not intractable Qualified Code(s): R51 - Headache - Problem List Review Problem List Initiated/Reviewed/Updated: Yes - My Orders Last 24 Hours: My Active Orders 01/28/20 Lunch Clear Liquid Diet [DIET] 01/28/20 14:11 Antiembolic Devices [RC] PER UNIT ROUTINE Intake and Output [RC] Q12H May Shower [RC] ASDIRECTED Oxygen Therapy [RC] PRN Up With Assistance [RC] ASDIRECTED VTE/DVT Education [RC] PER UNIT ROUTINE Vital Signs [RC] Q4H Acetaminophen [Tylenol] 650 mg PO Q4H PRN Morphine 2 mg IVPUSH Q2H PRN oxyCODONE 5 mg PO Q4H PRN Sequential Compression Device [OM.PC] Per Unit Routine Resuscitation Status Routine 01/28/20 14:12 Docusate Sodium [Colace] 100 mg PO BID PRN Ondansetron [Zofran] 4 mg IVPUSH Q4H PRN Sodium Chloride 0.9% [Saline Flush] 2.5 ml FLUSH ASDIRECTED PRN Saline Lock Insert [OM.PC] Routine 01/28/20 14:15 Sodium Chloride 0.9% [Normal Saline] 1,000 ml IV Q8H 01/28/20 Dinner Advance Diet Instructions [DIET] 01/29/20 08:30 Ibuprofen [Motrin] 400 mg PO Q6H PRN 01/29/20 12:00 cefTRIAXone [Rocephin in Dextrose,Iso-Osm 1 GM/50 ML] 1 gm Premix Bag 1 bag IV Q24H 01/30/20 05:11 CBC WITH AUTO DIFF [HEME] AM COMPREHENSIVE METABOLIC PN,CMP [CHEM] AM - Plan Plan:: This 29 year old female admitted with acute pyelonephritis 1. Acute pyelonephritis - UC and BC pending - Continue Rocephin 1 gm IV daily - Give 1 L NS bolus now, then continue NS 125 ml/hr - Morphine PRN pain as well as Oxycodone - CL diet due to nausea, advance as tolerated. - Renal US negative - JOVITA resolved with IVFs 2. Hypokalemia; - Replace with 40 meq IV - Check mag and replace as needed 3. Migraine: - Continues, hydrate. - Add Motrin VTE prophylaxis: SCDs and ambulation Dispo: 1-2 days
[2020-01-29] MEDS ORDERED: Sodium Chloride 0.9% 1,000 ML IV ONE (09:07)
[2020-01-29] MEDS: Acetaminophen 325 MG Tab PO PRN ×2 (09:30→17:20)
[2020-01-29] MEDS ORDERED: Sodium Chloride 0.9% with KCl 1,000 ML IV SCH (09:45)
[2020-01-29] MEDS: cefTRIAXone 1 GM in Premix Bag 1 BAG IV SCH (12:49)
[2020-01-29] MEDS: Morphine 2 MG/ML SYRINGE IVPUSH PRN ×2 (14:50→20:49)
[2020-01-29] MEDS: Sodium Chloride 0.9% 1,000 ML IV SCH ×3 (17:10→22:11)
[2020-01-30] MEDS: oxyCODONE 5 MG Tab PO PRN (02:13)
[2020-01-30] MEDS: Sodium Chloride 0.9% 1,000 ML IV SCH ×3 (06:12→18:11)
[2020-01-30 06:42] LABS: BLOOD UREA NITROGEN,BUN 4 mg/dL (7.0-18.0); CARBON DIOXIDE,CO2 23.6 mmol/L (21.0-32.0); CHLORIDE,CL 102 mmol/L (98-107); GLUCOSE RANDOM 97 mg/dL (74-106); POTASSIUM,K 3.1 mmol/L (3.5-5.1); SODIUM,NA 137 mmol/L (136-145)
[2020-01-30] MEDS ORDERED: Magnesium Sulfate/Water 2 GM in Premix Bag 1 BAG IV ONE (07:22)
[2020-01-30] MEDS: Acetaminophen 325 MG Tab PO PRN (08:40)
[2020-01-30] MEDS: Morphine 2 MG/ML SYRINGE IVPUSH PRN (08:41)
[2020-01-30] MEDS ORDERED: Potassium Chloride 20 MEQ Tab.ER PO ONE (09:00)
--- NOTE | 2020-01-30 09:07 | PCM.PN ---
<Maulik Patel M - Last Filed: 01/30/20 12:26> - General Info Date of Service: 01/30/20 Subjective Update: Fever yesterday evening. Continues to complain of fatigue and left flank pain but improving. Denies any nausea or vomiting. Has not had much of an appetite. - Patient Data Vitals - Most Recent: Last Vital Signs Temp 37.6 C 01/30/20 08:00 Pulse 84 01/30/20 08:00 Resp 16 01/30/20 08:00 BP 112/75 01/30/20 08:00 Pulse Ox 94 L 01/30/20 08:00 Weight - Most Recent: 63.503 kg I&O - Last 24 Hours: Intake & Output 01/29/20 01/30/20 01/30/20 22:59 06:59 14:59 Intake Total 3311 2708 Output Total 3500 2100 Balance -189 608 Lab Results Last 24 Hours: Laboratory Results - last 24 hr 01/29/20 01/30/20 01/30/20 Range/Units 05:33 05:17 05:17 WBC 7.87 (4.0-11.0) K/uL RBC 3.79 L (4.30-5.90) M/uL Hgb 11.0 L (12.0-16.0) g/dL Hct 31.8 L (36.0-46.0) % MCV 83.9 (80.0-98.0) fL MCH 29.0 (27.0-32.0) pg MCHC 34.6 (31.0-37.0) g/dL RDW Std Deviation 40.3 (28.0-62.0) fl RDW Coeff of [place] 14 (11.0-15.0) % Plt Count 215 (150-400) K/uL MPV 10.70 (7.40-12.00) fL Add Manual Diff YES Neutrophils % (Manual) 72 (48.0-80.0) % Lymphocytes % (Manual) 15 L (16.0-40.0) % Monocytes % (Manual) 10 (0.0-15.0) % Eosinophils % (Manual) 1 (0.0-7.0) % Basophils % (Manual) 2 H (0.0-1.5) % Absolute Seg Neuts 5.7 (1.4-5.7) Lymphocytes # (Manual) 1.2 (0.6-2.4) Monocytes # (Manual) 0.8 (0.0-0.8) Eosinophils # (Manual) 0.1 (0.0-0.7) Basophils # (Manual) 0.2 H (0.0-0.1) Sodium 137 (136-145) mmol/L Potassium 3.1 L (3.5-5.1) mmol/L Chloride 102 (98-107) mmol/L Carbon Dioxide 23.6 (21.0-32.0) mmol/L BUN 4 L (7.0-18.0) mg/dL Creatinine 0.9 (0.6-1.0) mg/dL Est Cr Clr Drug Dosing 93.29 mL/min Estimated GFR (MDRD) > 60.0 ml/min Glucose 97 (74-106) mg/dL Calcium 7.6 L (8.5-10.1) mg/dL Magnesium 1.8 1.7 L (1.8-2.4) mg/dL Total Bilirubin 0.9 (0.2-1.0) mg/dL AST 55 H (15-37) IU/L ALT 95 H (14-63) IU/L Alkaline Phosphatase 116 (46-116) U/L Total Protein 6.6 (6.4-8.2) g/dL Albumin 2.5 L (3.4-5.0) g/dL Globulin 4.1 H (2.6-4.0) g/dL Albumin/Globulin Ratio 0.6 L (0.9-1.6) Emanuel Results Last 24 Hours: Microbiology 01/28/20 10:52 Urine Culture - Final Urine, Voided Escherichia Coli 01/28/20 13:12 Aerobic Blood Culture - Preliminary Blood - Venous - Lab Draw NO GROWTH AFTER 1 DAY Anaerobic Blood Culture - Preliminary NO GROWTH AFTER 1 DAY 01/28/20 12:52 Aerobic Blood Culture - Preliminary Blood - Venous NO GROWTH AFTER 1 DAY Anaerobic Blood Culture - Preliminary NO GROWTH AFTER 1 DAY Med Orders - Current: Current Medications Acetaminophen (Tylenol) 650 mg PO Q4H PRN PRN Reason: Pain (Mild 1-3)/fever Last Admin: 01/30/20 08:40 Dose: 650 mg Documented by: Docusate Sodium (Colace) 100 mg PO BID PRN PRN Reason: Constipation Sodium Chloride (Normal Saline) 1,000 mls @ 125 mls/hr IV Q8H [facility] Last Admin: 01/30/20 06:12 Dose: Not Given Documented by: Ceftriaxone Sodium/Dextrose 1 (gm/ Premix) 50 mls @ 100 mls/hr IV Q24H [facility] Last Admin: 01/29/20 12:49 Dose: 100 mls/hr Documented by: Ibuprofen (Motrin) 400 mg PO Q6H PRN PRN Reason: Pain/Fever Morphine Sulfate (Morphine) 2 mg IVPUSH Q2H PRN PRN Reason: Pain (severe 7-10) Last Admin: 01/30/20 08:41 Dose: 2 mg Documented by: Ondansetron HCl (Zofran) 4 mg IVPUSH Q4H PRN PRN Reason: Nausea Oxycodone HCl (Oxycodone) 5 mg PO Q4H PRN PRN Reason: Pain (moderate 4-6) Last Admin: 01/30/20 02:13 Dose: 5 mg Documented by: Sodium Chloride (Saline Flush) 2.5 ml FLUSH ASDIRECTED PRN PRN Reason: Keep Vein Open Discontinued Medications Diphenhydramine HCl (Benadryl) 25 mg IVPUSH ONETIME ONE Stop: 01/28/20 12:54 Last Admin: 01/28/20 13:18 Dose: 25 mg Documented by: Sodium Chloride (Normal Saline) 1,000 mls @ 999 mls/hr IV STAT ONE Stop: 01/28/20 11:38 Last Admin: 01/28/20 11:09 Dose: 999 mls/hr Documented by: Ceftriaxone Sodium/Dextrose 1 (gm/ Premix) 50 mls @ 100 mls/hr IV ONETIME ONE Stop: 01/28/20 12:34 Last Admin: 01/28/20 13:16 Dose: 100 mls/hr Documented by: Sodium Chloride (Normal Saline) 1,000 mls @ 999 mls/hr IV .Bolus ONE Stop: 01/28/20 15:37 Last Admin: 01/28/20 14:44 Dose: 999 mls/hr Documented by: Sodium Chloride (Normal Saline) 1,000 mls @ 999 mls/hr IV .Bolus ONE Stop: 01/29/20 10:07 Last Admin: 01/29/20 09:29 Dose: 999 mls/hr Documented by: Potassium Chloride/Sodium Chloride (Normal Saline With 40 Meq Kcl) 1,000 mls @ 150 mls/hr IV Q6H [facility] Stop: 01/29/20 15:44 Last Admin: 01/29/20 10:25 Dose: 150 mls/hr Documented by: Magnesium Sulfate 2 gm/ Premix 50 mls @ 50 mls/hr IV ONETIME ONE Stop: 01/30/20 08:21 Last Admin: 01/30/20 08:38 Dose: 50 mls/hr Documented by: Ketorolac Tromethamine (Toradol) 30 mg IVPUSH ONETIME ONE Stop: 01/28/20 12:54 Last Admin: 01/28/20 13:17 Dose: 30 mg Documented by: Metoclopramide HCl (Reglan) 10 mg IV ONETIME ONE Stop: 01/28/20 12:54 Last Admin: 01/28/20 13:18 Dose: 10 mg Documented by: Ondansetron HCl (Zofran) 4 mg IVPUSH ONETIME ONE Stop: 01/28/20 12:09 Last Admin: 01/28/20 13:18 Dose: 4 mg Documented by: Phenazopyridine HCl (Pyridium) 200 mg PO ONETIME ONE Stop: 01/28/20 12:09 Last Admin: 01/28/20 13:19 Dose: 200 mg Documented by: Potassium Chloride (Klor-Con M20) 40 meq PO ONETIME ONE Stop: 01/30/20 09:01 Last Admin: 01/30/20 08:39 Dose: 40 meq Documented by: Sumatriptan Succinate (Imitrex) 50 mg PO Q2H PRN PRN Reason: Headache Last Admin: 01/28/20 19:26 Dose: 50 mg Documented by: - Exam General: Alert, Oriented, Cooperative, No Acute Distress Lungs: Clear to Auscultation, Normal Respiratory Effort Cardiovascular: Regular Rate, Regular Rhythm GI/Abdominal Exam: Normal Bowel Sounds, Soft, No Distention, Other (Left flank ttp) Extremities: Normal Inspection, No Pedal Edema Sepsis Event Note - Evaluation Sepsis Screening Result: No Definite Risk - Focused Exam Vital Signs: Vital Signs Temp Pulse Resp BP Pulse Ox 01/30/20 08:00 37.6 C 84 16 112/75 94 L 01/30/20 03:30 37.1 C 93 16 115/68 95 01/29/20 23:37 37.7 C 94 16 106/67 95 - Problem List Review Problem List Initiated/Reviewed/Updated: Yes - Plan Plan:: Assessment and Plan: 1. Acute pyelonephritis: - Continue IV ceftriaxone and IV NS 125 cc/hr. Advance to soft diet. Will start IV PPI qd. Repeat blood cultures ordered secondary to fever. Urine culture grew chu-sensitive E. Coli. Will start IV Toradol prn pain. - Renal US unremarkable. 2. Hypokalemia: - Will replete with IV KCl 40 mEq and recheck with AM labs. 3. Hypomagnesemia: - Will replete with IV mag sulfate 2g and recheck with AM labs. 4. DVT prophylaxis: SCD's. <Zonia Jeong - Last Filed: 01/31/20 11:25> - General Info Subjective Update: I have seen and evaluated the patient and agree with the residents note unless specified in my note - Patient Data Vitals - Most Recent: Last Vital Signs Temp 36.8 C 01/30/20 16:51 Pulse 77 01/30/20 16:51 Resp 16 01/30/20 16:51 BP 110/78 01/30/20 16:51 Pulse Ox 100 01/30/20 16:51 I&O - Last 24 Hours: Intake & Output 01/30/20 01/31/20 01/31/20 22:59 06:59 14:59 Intake Total 3513 Output Total 3300 Balance 213 Lab Results Last 24 Hours: Laboratory Results - last 24 hr 01/30/20 Range/Units 11:50 Urine Color YELLOW Urine Appearance CLEAR Urine pH 7.0 (5.0-8.0) Ur Specific [place] 1.010 (1.001-1.035) Urine Protein NEGATIVE (NEGATIVE) mg/dL Urine Glucose (UA) NEGATIVE (NEGATIVE) mg/dL Urine Ketones NEGATIVE (NEGATIVE) mg/dL Urine Occult Blood LARGE H (NEGATIVE) Urine Nitrite NEGATIVE (NEGATIVE) Urine Bilirubin NEGATIVE (NEGATIVE) Urine Urobilinogen 1.0 (<2.0) EU/dL Ur Leukocyte Esterase TRACE H (NEGATIVE) Urine RBC 0-2 (0-2/HPF) Urine WBC 0-2 (0-5/HPF) Ur Epithelial Cells FEW (NONE-FEW) Urine Bacteria FEW (NEGATIVE) Urine Mucus LIGHT (NONE-MOD) Urine Other Urine Trichomonas PRESENT (NEGATIVE) Emanuel Results Last 24 Hours: Microbiology 01/30/20 10:28 Aerobic Blood Culture - Preliminary Blood - Venous - Lab Draw NO GROWTH AFTER 1 DAY Anaerobic Blood Culture - Final 01/30/20 10:17 Aerobic Blood Culture - Preliminary Blood - Venous NO GROWTH AFTER 1 DAY Anaerobic Blood Culture - Preliminary NO GROWTH AFTER 1 DAY 01/28/20 13:12 Aerobic Blood Culture - Preliminary Blood - Venous - Lab Draw NO GROWTH AFTER 2 DAYS Anaerobic Blood Culture - Preliminary NO GROWTH AFTER 2 DAYS 01/28/20 12:52 Aerobic Blood Culture - Preliminary Blood - Venous NO GROWTH AFTER 2 DAYS Anaerobic Blood Culture - Preliminary NO GROWTH AFTER 2 DAYS 01/28/20 10:52 Urine Culture - Final Urine, Voided Escherichia Coli Med Orders - Current: Current Medications Discontinued Medications Acetaminophen (Tylenol) 650 mg PO Q4H PRN PRN Reason: Pain (Mild 1-3)/fever Last Admin: 01/30/20 08:40 Dose: 650 mg Documented by: Diphenhydramine HCl (Benadryl) 25 mg IVPUSH ONETIME ONE Stop: 01/28/20 12:54 Last Admin: 01/28/20 13:18 Dose: 25 mg Documented by: Docusate Sodium (Colace) 100 mg PO BID PRN PRN Reason: Constipation Sodium Chloride (Normal Saline) 1,000 mls @ 999 mls/hr IV STAT ONE Stop: 01/28/20 11:38 Last Admin: 01/28/20 11:09 Dose: 999 mls/hr Documented by: Ceftriaxone Sodium/Dextrose 1 (gm/ Premix) 50 mls @ 100 mls/hr IV ONETIME ONE Stop: 01/28/20 12:34 Last Admin: 01/28/20 13:16 Dose: 100 mls/hr Documented by: Sodium Chloride (Normal Saline) 1,000 mls @ 125 mls/hr IV Q8H [facility] Last Admin: 01/30/20 18:11 Dose: Not Given Documented by: Ceftriaxone Sodium/Dextrose 1 (gm/ Premix) 50 mls @ 100 mls/hr IV Q24H [facility] Last Admin: 01/30/20 14:18 Dose: 100 mls/hr Documented by: Sodium Chloride (Normal Saline) 1,000 mls @ 999 mls/hr IV .Bolus ONE Stop: 01/28/20 15:37 Last Admin: 01/28/20 14:44 Dose: 999 mls/hr Documented by: Sodium Chloride (Normal Saline) 1,000 mls @ 999 mls/hr IV .Bolus ONE Stop: 01/29/20 10:07 Last Admin: 01/29/20 09:29 Dose: 999 mls/hr Documented by: Potassium Chloride/Sodium Chloride (Normal Saline With 40 Meq Kcl) 1,000 mls @ 150 mls/hr IV Q6H [place] Stop: 01/29/20 15:44 Last Admin: 01/29/20 10:25 Dose: 150 mls/hr Documented by: Magnesium Sulfate 2 gm/ Premix 50 mls @ 50 mls/hr IV ONETIME ONE Stop: 01/30/20 08:21 Last Admin: 01/30/20 08:38 Dose: 50 mls/hr Documented by: Pantoprazole Sodium 40 mg/ (Sodium Chloride) 10 mls @ 300 mls/hr IV DAILY [facility] Last Admin: 01/30/20 14:23 Dose: 300 mls/hr Documented by: Ibuprofen (Motrin) 400 mg PO Q6H PRN PRN Reason: Pain/Fever Ibuprofen (Motrin) 400 mg PO Q6H PRN PRN Reason: Pain/Fever Ketorolac Tromethamine (Toradol) 30 mg IVPUSH ONETIME ONE Stop: 01/28/20 12:54 Last Admin: 01/28/20 13:17 Dose: 30 mg Documented by: Ketorolac Tromethamine (Toradol) 30 mg IVPUSH Q6H PRN PRN Reason: Pain Stop: 02/04/20 10:05 Metoclopramide HCl (Reglan) 10 mg IV ONETIME ONE Stop: 01/28/20 12:54 Last Admin: 01/28/20 13:18 Dose: 10 mg Documented by: Morphine Sulfate (Morphine) 2 mg IVPUSH Q2H PRN PRN Reason: Pain (severe 7-10) Last Admin: 01/30/20 08:41 Dose: 2 mg Documented by: Ondansetron HCl (Zofran) 4 mg IVPUSH ONETIME ONE Stop: 01/28/20 12:09 Last Admin: 01/28/20 13:18 Dose: 4 mg Documented by: Ondansetron HCl (Zofran) 4 mg IVPUSH Q4H PRN PRN Reason: Nausea Oxycodone HCl (Oxycodone) 5 mg PO Q4H PRN PRN Reason: Pain (moderate 4-6) Last Admin: 01/30/20 02:13 Dose: 5 mg Documented by: Phenazopyridine HCl (Pyridium) 200 mg PO ONETIME ONE Stop: 01/28/20 12:09 Last Admin: 01/28/20 13:19 Dose: 200 mg Documented by: Potassium Chloride (Klor-Con M20) 40 meq PO ONETIME ONE Stop: 01/30/20 09:01 Last Admin: 01/30/20 08:39 Dose: 40 meq Documented by: Sodium Chloride (Saline Flush) 2.5 ml FLUSH ASDIRECTED PRN PRN Reason: Keep Vein Open Sumatriptan Succinate (Imitrex) 50 mg PO Q2H PRN PRN Reason: Headache Last Admin: 01/28/20 19:26 Dose: 50 mg Documented by:
[2020-01-30] MEDS ORDERED: Ketorolac 30 MG/ML SDV IVPUSH PRN (10:05)
[2020-01-30] MEDS ORDERED: Pantoprazole 40 MG in Sodium Chloride 0.9% 10 ML IV SCH (11:45)
[2020-01-30] MEDS: cefTRIAXone 1 GM in Premix Bag 1 BAG IV SCH (14:18)
--- NOTE | 2020-01-30 17:08 | PCM.DCSUM1 ---
<Maulik Patel - Last Filed: 01/30/20 17:08> Discharge Summary - Hospital Course Free Text/Narrative:: 29-year-old female admitted for acute pyelonephritis. She has a PMH of frequent UTI's. On admission, UA positive for nitrites, leukocyte esterase and pyuria. COVID19 test negative, CXR negative, CT head negative and retroperitoneal U/S was negative. Blood cultures were negative. Urine culture grew chu-sensitive E. Coli. Patient treated with IV rocephin and started on IV NS. On day of discharge, patient was afebrile for 24 hours, able to tolerate PO and noted significant improvement in left flank pain. Patient discharged in stable condition on PO ciprofloxacin for 8 more days to complete a 10-day course. - Discharge Data Discharge Date: 01/30/20 Discharge Disposition: Home, Self-Care 01 Condition: Stable - Referral to Home Health Primary Care Physician: PCP None - Patient Instructions Diet: Usual Diet as Tolerated Activity: As Tolerated Notify Provider of: Fever, Increased Pain, Swelling and Redness, Drainage, Nausea and/or Vomiting - Discharge Plan *PRESCRIPTION DRUG MONITORING PROGRAM REVIEWED*: Not Applicable *COPY OF PRESCRIPTION DRUG MONITORING REPORT IN PATIENT JASS: Not Applicable Prescriptions/Med Rec: Ciprofloxacin 500 mg PO BID 8 Days #16 ml Home Medications: Home Meds Ciprofloxacin 500 mg PO BID 8 Days #16 ml 01/30/20 [Rx] Oxygen Therapy Mode: Room Air Patient Handouts: Pyelonephritis, Adult, [id number], Ciprofloxacin tablets Referrals: Maulik Patel MD [Physician] - 02/16/20 9:30 am - Discharge Summary/Plan Comment DC Time >30 min.: No - Patient Data Vitals - Most Recent: Last Vital Signs Temp 36.8 C 01/30/20 16:51 Pulse 77 01/30/20 16:51 Resp 16 01/30/20 16:51 BP 110/78 01/30/20 16:51 Pulse Ox 100 01/30/20 16:51 Weight - Most Recent: 63.503 kg I&O - Last 24 hours: Intake & Output 01/30/20 01/30/20 01/30/20 06:59 14:59 22:59 Intake Total 2708 3513 Output Total 2100 3300 Balance 608 213 Lab Results - Last 24 hrs: Laboratory Results - last 24 hr 08/15/20 08/15/20 08/15/20 Range/Units 05:17 05:17 11:50 WBC 7.87 (4.0-11.0) K/uL RBC 3.79 L (4.30-5.90) M/uL Hgb 11.0 L (12.0-16.0) g/dL Hct 31.8 L (36.0-46.0) % MCV 83.9 (80.0-98.0) fL MCH 29.0 (27.0-32.0) pg MCHC 34.6 (31.0-37.0) g/dL RDW Std Deviation 40.3 (28.0-62.0) fl RDW Coeff of Karrie 14 (11.0-15.0) % Plt Count 215 (150-400) K/uL MPV 10.70 (7.40-12.00) fL Add Manual Diff YES Neutrophils % (Manual) 72 (48.0-80.0) % Lymphocytes % (Manual) 15 L (16.0-40.0) % Monocytes % (Manual) 10 (0.0-15.0) % Eosinophils % (Manual) 1 (0.0-7.0) % Basophils % (Manual) 2 H (0.0-1.5) % Absolute Seg Neuts 5.7 (1.4-5.7) Lymphocytes # (Manual) 1.2 (0.6-2.4) Monocytes # (Manual) 0.8 (0.0-0.8) Eosinophils # (Manual) 0.1 (0.0-0.7) Basophils # (Manual) 0.2 H (0.0-0.1) Sodium 137 (136-145) mmol/L Potassium 3.1 L (3.5-5.1) mmol/L Chloride 102 (98-107) mmol/L Carbon Dioxide 23.6 (21.0-32.0) mmol/L BUN 4 L (7.0-18.0) mg/dL Creatinine 0.9 (0.6-1.0) mg/dL Est Cr Clr Drug Dosing 93.29 mL/min Estimated GFR (MDRD) > 60.0 ml/min Glucose 97 (74-106) mg/dL Calcium 7.6 L (8.5-10.1) mg/dL Magnesium 1.7 L (1.8-2.4) mg/dL Total Bilirubin 0.9 (0.2-1.0) mg/dL AST 55 H (15-37) IU/L ALT 95 H (14-63) IU/L Alkaline Phosphatase 116 (46-116) U/L Total Protein 6.6 (6.4-8.2) g/dL Albumin 2.5 L (3.4-5.0) g/dL Globulin 4.1 H (2.6-4.0) g/dL Albumin/Globulin Ratio 0.6 L (0.9-1.6) Urine Color YELLOW Urine Appearance CLEAR Urine pH 7.0 (5.0-8.0) Ur Specific Adger 1.010 (1.001-1.035) Urine Protein NEGATIVE (NEGATIVE) mg/dL Urine Glucose (UA) NEGATIVE (NEGATIVE) mg/dL Urine Ketones NEGATIVE (NEGATIVE) mg/dL Urine Occult Blood LARGE H (NEGATIVE) Urine Nitrite NEGATIVE (NEGATIVE) Urine Bilirubin NEGATIVE (NEGATIVE) Urine Urobilinogen 1.0 (<2.0) EU/dL Ur Leukocyte Esterase TRACE H (NEGATIVE) Urine RBC 0-2 (0-2/HPF) Urine WBC 0-2 (0-5/HPF) Ur Epithelial Cells FEW (NONE-FEW) Urine Bacteria FEW (NEGATIVE) Urine Mucus LIGHT (NONE-MOD) Urine Other Urine Trichomonas PRESENT (NEGATIVE) ROBERT Results - Last 24 hrs: Microbiology 01/28/20 13:12 Aerobic Blood Culture - Preliminary Blood - Venous - Lab Draw NO GROWTH AFTER 2 DAYS Anaerobic Blood Culture - Preliminary NO GROWTH AFTER 2 DAYS 01/28/20 12:52 Aerobic Blood Culture - Preliminary Blood - Venous NO GROWTH AFTER 2 DAYS Anaerobic Blood Culture - Preliminary NO GROWTH AFTER 2 DAYS 01/30/20 10:28 Anaerobic Blood Culture - Final Blood - Venous - Lab Draw 01/28/20 10:52 Urine Culture - Final Urine, Voided Escherichia Coli Med Orders - Current: Current Medications Acetaminophen (Tylenol) 650 mg PO Q4H PRN PRN Reason: Pain (Mild 1-3)/fever Last Admin: 01/30/20 08:40 Dose: 650 mg Documented by: Docusate Sodium (Colace) 100 mg PO BID PRN PRN Reason: Constipation Sodium Chloride (Normal Saline) 1,000 mls @ 125 mls/hr IV Q8H [facility] Last Admin: 01/30/20 11:51 Dose: 125 mls/hr Documented by: Ceftriaxone Sodium/Dextrose 1 (gm/ Premix) 50 mls @ 100 mls/hr IV Q24H [facility] Last Admin: 01/30/20 14:18 Dose: 100 mls/hr Documented by: Pantoprazole Sodium 40 mg/ (Sodium Chloride) 10 mls @ 300 mls/hr IV DAILY [facility] Last Admin: 01/30/20 14:23 Dose: 300 mls/hr Documented by: Ibuprofen (Motrin) 400 mg PO Q6H PRN PRN Reason: Pain/Fever Ketorolac Tromethamine (Toradol) 30 mg IVPUSH Q6H PRN PRN Reason: Pain Stop: 02/04/20 10:05 Ondansetron HCl (Zofran) 4 mg IVPUSH Q4H PRN PRN Reason: Nausea Oxycodone HCl (Oxycodone) 5 mg PO Q4H PRN PRN Reason: Pain (moderate 4-6) Last Admin: 01/30/20 02:13 Dose: 5 mg Documented by: Sodium Chloride (Saline Flush) 2.5 ml FLUSH ASDIRECTED PRN PRN Reason: Keep Vein Open Discontinued Medications Diphenhydramine HCl (Benadryl) 25 mg IVPUSH ONETIME ONE Stop: 01/28/20 12:54 Last Admin: 01/28/20 13:18 Dose: 25 mg Documented by: Sodium Chloride (Normal Saline) 1,000 mls @ 999 mls/hr IV STAT ONE Stop: 01/28/20 11:38 Last Admin: 01/28/20 11:09 Dose: 999 mls/hr Documented by: Ceftriaxone Sodium/Dextrose 1 (gm/ Premix) 50 mls @ 100 mls/hr IV ONETIME ONE Stop: 01/28/20 12:34 Last Admin: 01/28/20 13:16 Dose: 100 mls/hr Documented by: Sodium Chloride (Normal Saline) 1,000 mls @ 999 mls/hr IV .Bolus ONE Stop: 01/28/20 15:37 Last Admin: 01/28/20 14:44 Dose: 999 mls/hr Documented by: Sodium Chloride (Normal Saline) 1,000 mls @ 999 mls/hr IV .Bolus ONE Stop: 01/29/20 10:07 Last Admin: 01/29/20 09:29 Dose: 999 mls/hr Documented by: Potassium Chloride/Sodium Chloride (Normal Saline With 40 Meq Kcl) 1,000 mls @ 150 mls/hr IV Q6H [facility] Stop: 01/29/20 15:44 Last Admin: 01/29/20 10:25 Dose: 150 mls/hr Documented by: Magnesium Sulfate 2 gm/ Premix 50 mls @ 50 mls/hr IV ONETIME ONE Stop: 01/30/20 08:21 Last Admin: 01/30/20 08:38 Dose: 50 mls/hr Documented by: Ibuprofen (Motrin) 400 mg PO Q6H PRN PRN Reason: Pain/Fever Ketorolac Tromethamine (Toradol) 30 mg IVPUSH ONETIME ONE Stop: 01/28/20 12:54 Last Admin: 01/28/20 13:17 Dose: 30 mg Documented by: Metoclopramide HCl (Reglan) 10 mg IV ONETIME ONE Stop: 01/28/20 12:54 Last Admin: 01/28/20 13:18 Dose: 10 mg Documented by: Morphine Sulfate (Morphine) 2 mg IVPUSH Q2H PRN PRN Reason: Pain (severe 7-10) Last Admin: 01/30/20 08:41 Dose: 2 mg Documented by: Ondansetron HCl (Zofran) 4 mg IVPUSH ONETIME ONE Stop: 01/28/20 12:09 Last Admin: 01/28/20 13:18 Dose: 4 mg Documented by: Phenazopyridine HCl (Pyridium) 200 mg PO ONETIME ONE Stop: 01/28/20 12:09 Last Admin: 01/28/20 13:19 Dose: 200 mg Documented by: Potassium Chloride (Klor-Con M20) 40 meq PO ONETIME ONE Stop: 01/30/20 09:01 Last Admin: 01/30/20 08:39 Dose: 40 meq Documented by: Sumatriptan Succinate (Imitrex) 50 mg PO Q2H PRN PRN Reason: Headache Last Admin: 01/28/20 19:26 Dose: 50 mg Documented by: <Zonia Jeong - Last Filed: 01/31/20 11:21> Discharge Summary - Hospital Course Free Text/Narrative:: I have seen and evaluated the patient and agree with the residents note unless specified in my note - Referral to Home Health Primary Care Physician: PCP None - Patient Data Vitals - Most Recent: Last Vital Signs Temp 36.8 C 01/30/20 16:51 Pulse 77 01/30/20 16:51 Resp 16 01/30/20 16:51 BP 110/78 01/30/20 16:51 Pulse Ox 100 01/30/20 16:51 I&O - Last 24 hours: Intake & Output 01/30/20 01/31/20 01/31/20 22:59 06:59 14:59 Intake Total 3513 Output Total 3300 Balance 213 Lab Results - Last 24 hrs: Laboratory Results - last 24 hr 01/30/20 Range/Units 11:50 Urine Color YELLOW Urine Appearance CLEAR Urine pH 7.0 (5.0-8.0) Ur Specific Adger 1.010 (1.001-1.035) Urine Protein NEGATIVE (NEGATIVE) mg/dL Urine Glucose (UA) NEGATIVE (NEGATIVE) mg/dL Urine Ketones NEGATIVE (NEGATIVE) mg/dL Urine Occult Blood LARGE H (NEGATIVE) Urine Nitrite NEGATIVE (NEGATIVE) Urine Bilirubin NEGATIVE (NEGATIVE) Urine Urobilinogen 1.0 (<2.0) EU/dL Ur Leukocyte Esterase TRACE H (NEGATIVE) Urine RBC 0-2 (0-2/HPF) Urine WBC 0-2 (0-5/HPF) Ur Epithelial Cells FEW (NONE-FEW) Urine Bacteria FEW (NEGATIVE) Urine Mucus LIGHT (NONE-MOD) Urine Other Urine Trichomonas PRESENT (NEGATIVE) ROBERT Results - Last 24 hrs: Microbiology 01/30/20 10:28 Aerobic Blood Culture - Preliminary Blood - Venous - Lab Draw NO GROWTH AFTER 1 DAY Anaerobic Blood Culture - Final 01/30/20 10:17 Aerobic Blood Culture - Preliminary Blood - Venous NO GROWTH AFTER 1 DAY Anaerobic Blood Culture - Preliminary NO GROWTH AFTER 1 DAY 01/28/20 13:12 Aerobic Blood Culture - Preliminary Blood - Venous - Lab Draw NO GROWTH AFTER 2 DAYS Anaerobic Blood Culture - Preliminary NO GROWTH AFTER 2 DAYS 01/28/20 12:52 Aerobic Blood Culture - Preliminary Blood - Venous NO GROWTH AFTER 2 DAYS Anaerobic Blood Culture - Preliminary NO GROWTH AFTER 2 DAYS 01/28/20 10:52 Urine Culture - Final Urine, Voided Escherichia Coli Med Orders - Current: Current Medications Discontinued Medications Acetaminophen (Tylenol) 650 mg PO Q4H PRN PRN Reason: Pain (Mild 1-3)/fever Last Admin: 01/30/20 08:40 Dose: 650 mg Documented by: Diphenhydramine HCl (Benadryl) 25 mg IVPUSH ONETIME ONE Stop: 01/28/20 12:54 Last Admin: 01/28/20 13:18 Dose: 25 mg Documented by: Docusate Sodium (Colace) 100 mg PO BID PRN PRN Reason: Constipation Sodium Chloride (Normal Saline) 1,000 mls @ 999 mls/hr IV STAT ONE Stop: 01/28/20 11:38 Last Admin: 01/28/20 11:09 Dose: 999 mls/hr Documented by: Ceftriaxone Sodium/Dextrose 1 (gm/ Premix) 50 mls @ 100 mls/hr IV ONETIME ONE Stop: 01/28/20 12:34 Last Admin: 01/28/20 13:16 Dose: 100 mls/hr Documented by: Sodium Chloride (Normal Saline) 1,000 mls @ 125 mls/hr IV Q8H [facility] Last Admin: 01/30/20 18:11 Dose: Not Given Documented by: Ceftriaxone Sodium/Dextrose 1 (gm/ Premix) 50 mls @ 100 mls/hr IV Q24H [facility] Last Admin: 01/30/20 14:18 Dose: 100 mls/hr Documented by: Sodium Chloride (Normal Saline) 1,000 mls @ 999 mls/hr IV .Bolus ONE Stop: 01/28/20 15:37 Last Admin: 01/28/20 14:44 Dose: 999 mls/hr Documented by: Sodium Chloride (Normal Saline) 1,000 mls @ 999 mls/hr IV .Bolus ONE Stop: 01/29/20 10:07 Last Admin: 01/29/20 09:29 Dose: 999 mls/hr Documented by: Potassium Chloride/Sodium Chloride (Normal Saline With 40 Meq Kcl) 1,000 mls @ 150 mls/hr IV Q6H [facility] Stop: 01/29/20 15:44 Last Admin: 01/29/20 10:25 Dose: 150 mls/hr Documented by: Magnesium Sulfate 2 gm/ Premix 50 mls @ 50 mls/hr IV ONETIME ONE Stop: 01/30/20 08:21 Last Admin: 01/30/20 08:38 Dose: 50 mls/hr Documented by: Pantoprazole Sodium 40 mg/ (Sodium Chloride) 10 mls @ 300 mls/hr IV DAILY [facility] Last Admin: 01/30/20 14:23 Dose: 300 mls/hr Documented by: Ibuprofen (Motrin) 400 mg PO Q6H PRN PRN Reason: Pain/Fever Ibuprofen (Motrin) 400 mg PO Q6H PRN PRN Reason: Pain/Fever Ketorolac Tromethamine (Toradol) 30 mg IVPUSH ONETIME ONE Stop: 01/28/20 12:54 Last Admin: 01/28/20 13:17 Dose: 30 mg Documented by: Ketorolac Tromethamine (Toradol) 30 mg IVPUSH Q6H PRN PRN Reason: Pain Stop: 02/04/20 10:05 Metoclopramide HCl (Reglan) 10 mg IV ONETIME ONE Stop: 01/28/20 12:54 Last Admin: 01/28/20 13:18 Dose: 10 mg Documented by: Morphine Sulfate (Morphine) 2 mg IVPUSH Q2H PRN PRN Reason: Pain (severe 7-10) Last Admin: 01/30/20 08:41 Dose: 2 mg Documented by: Ondansetron HCl (Zofran) 4 mg IVPUSH ONETIME ONE Stop: 01/28/20 12:09 Last Admin: 01/28/20 13:18 Dose: 4 mg Documented by: Ondansetron HCl (Zofran) 4 mg IVPUSH Q4H PRN PRN Reason: Nausea Oxycodone HCl (Oxycodone) 5 mg PO Q4H PRN PRN Reason: Pain (moderate 4-6) Last Admin: 01/30/20 02:13 Dose: 5 mg Documented by: Phenazopyridine HCl (Pyridium) 200 mg PO ONETIME ONE Stop: 01/28/20 12:09 Last Admin: 01/28/20 13:19 Dose: 200 mg Documented by: Potassium Chloride (Klor-Con M20) 40 meq PO ONETIME ONE Stop: 01/30/20 09:01 Last Admin: 01/30/20 08:39 Dose: 40 meq Documented by: Sodium Chloride (Saline Flush) 2.5 ml FLUSH ASDIRECTED PRN PRN Reason: Keep Vein Open Sumatriptan Succinate (Imitrex) 50 mg PO Q2H PRN PRN Reason: Headache Last Admin: 01/28/20 19:26 Dose: 50 mg Documented by:
[2020-02-04] MEDS ORDERED: Ibuprofen 400 MG Tab PO PRN (16:00)
== END 2020-01-30 17:55 | disposition home or self-care (01) | DRG 690 ==
LOC: MW.ED 10:13 → MW.MS 13:44 → OBSVTOIN 01-29 09:08 → MW.MS 01-29 12:03
PROVIDERS: ADMIT Internal Medicine; ATTEND Internal Medicine
DX: N10 Acute pyelonephritis (principal); B96.20 Unspecified Escherichia coli [E. coli] as the cause of diseases classified elsewhere; G43.909 Migraine, unspecified, not intractable, without status migrainosus; E87.6 Hypokalemia; E83.42 Hypomagnesemia; Z20.828 Contact with and (suspected) exposure to other viral communicable diseases
CPT/HCPCS: 36415; 70450; 70450-26; 71045; 71045-26; 76770; 76770-26; 80053; 81001; 81025; 83605; 83735; 84484; 85025; 87040; 87086; 87088; 87186; 93005; 96361; 96365; 96375; 96376; 99285-25; A9270-GY; C9113; G0378; J0696; J1200; J1885; J2270; J2405; J2765; J3475; J3480; J7030; J7050; U0002